=== PATIENT | female | born 2000 | race Two or more races ===

== ENCOUNTER 2024-10-22 19:17 | Emergency (ER) | payer MEDICAID, SELFPAY ==
[2024-10-22 20:19] VITALS: BP 114/78; PULSE 102; RESP 19; TEMP 37.5; O2SAT 97; BMI 29.9
--- NOTE | 2024-10-22 20:50 | PD.EDURI ---
Upper Respiratory Inf. RME/HPI General Chief Complaint: Dental/Oral/Throat Stated Complaint: THROAT PAIN, COUGH, SOB Time Seen by Provider: 10/22/24 20:32 Arrival date/time: 10/22/24 19:17 24-year-old female presents to the ED with complaint of runny nose, nasal congestion, sore throat, headache, dry cough, and upper back pain. Denies fever or chills, nausea vomiting, diarrhea or abdominal pain. Mode of arrival: ambulatory Limitations: no limitations Related Data Home Medications ?Medication ?Instructions ?Recorded ?Confirmed aspirin 81 mg tablet,delayed 81 mg PO QDAY 08/19/23 08/19/23 release insulin glargine 100 unit/mL (3 10 unit subcut BID 08/19/23 08/19/23 mL) subcutaneous pen (Lantus Solostar U-100 Insulin) Previous Rx's ?Medication ?Instructions ?Recorded amoxicillin 875 mg tablet 875 mg PO BID #20 tabs 10/22/24 ibuprofen 600 mg tablet 600 mg PO Q8H PRN fever or pain 10/22/24 #20 tabs promethazine-DM 6.25 mg-15 mg/5 mL 10 ml PO .Every 8 hours PRN cough 10/22/24 oral syrup #118 mL Allergies Allergy/AdvReac Type Severity Reaction Status Date / Time No Known Allergies Allergy Verified 08/19/23 10:45 ED Exam General Limitations: Present no limitations General appearance: Present alert and in no apparent distress Head Head exam: Present atraumatic and normal inspection Eye Eye exam: Present normal appearance; Absent scleral icterus or conjunctival injection ENT ENT exam: Present TM's normal bilaterally Expanded ENT Exam External ear exam: Present normal external inspection Nose exam: Present sinus tenderness and other (nares with edema, erythema) Mouth exam: Present normal external inspection Throat exam: Present tonsillar erythema; Absent tonsillar exudate Neck Neck exam: Present normal inspection; Absent tenderness or lymphadenopathy Chest Chest inspection: Present normal inspection Respiratory Respiratory exam: Present normal lung sounds bilaterally; Absent respiratory distress or wheezes Cardiovascular Cardiovascular exam: Present regular rate, normal rhythm and normal heart sounds; Absent systolic murmur Abdominal Exam Abdominal exam: Present soft; Absent distention or tenderness Extremities Exam Extremities exam: Present normal inspection Back Exam Back exam: Present full ROM Neurological Exam Neurological exam: Present alert and oriented X3 Psychiatric Psychiatric exam: Present normal affect and normal mood Skin Skin exam: Present warm, dry, intact and normal color Course Course Course Narrative: 24-year-old female presents to the ED with complaint of runny nose, nasal congestion, sore throat, headache, dry cough, and upper back pain. Denies fever or chills, nausea vomiting, diarrhea or abdominal pain. Exam reveals tender frontal sinuses, erythema, edema to nares bilat, mild erythema to posterior pharynx. No lymphadenopathy. Lungs are clear. CV Regular rate and rhythm w/o murmurs. Abdomen is soft, non-tender. Quality Measures none Orders Category Date Time Status Bedside Influenza A&B Antigen Test NOW Care 10/22/24 19:19 Completed Vital Signs Vital signs: Vital Signs Temperature 99.5 F 10/22/24 20:19 Pulse Rate 102 H 10/22/24 20:19 Respiratory Rate 19 10/22/24 20:19 Blood Pressure 114/78 10/22/24 20:19 Pulse Oximetry (%) 97 10/22/24 20:19 Oxygen Delivery Method Room Air 10/22/24 20:19 Upper Respiratory Infection MDM Narrative MDM Narrative:: 24-year-old female presents to the ED with complaint of runny nose, nasal congestion, sore throat, headache, dry cough, and upper back pain. Denies fever or chills, nausea vomiting, diarrhea or abdominal pain. Exam reveals tender frontal sinuses, erythema, edema to nares bilat, mild erythema to posterior pharynx. No lymphadenopathy. Lungs are clear. CV Regular rate and rhythm w/o murmurs. Abdomen is soft, non-tender. Patient data External records reviewed:: None Clinical information provided by:: patient Social determinants that could affect healthcare access:: none Patient has the following chronic illnesses:: DM How is presenting disease/condition affected by chronic disease/condition?: uneffected by Evaluation data The following diagnostics were reviewed and interpreted by me:: other (specify) (none) Lab and/or radiology exams considered but not ordered:: None Interpretation Summary: N/A Medications / Prescriptions Medications or Prescriptions considered but not ordered:: None Medication administrations:: N/A Consultations Consultation(s) initiated? (list below): No Diagnosis Upper Respiratory Differential Diagnosis: upper respiratory infection, otitis media, sinusitis, viral infection, bronchitis and pharyngitis Most likely diagnosis given after review of the tests above:: Acute Sinusitis and Bronchitis Admission Indicated Admission indicated?: not indicated Explain why admission is indicated or not indicated:: Stable for discharge Admission Request Was there a request for admission?: No Disposition Plan Disposition Plan: Discharge Discharge Attestation Discharge Attestation: The patient and all family members were given an opportunity to ask questions and understood the discharge instructions. Discharge instructions specifically effects, indications for sooner follow up or return to the emergency department, and the expected course of current diagnosis. Patient condition: Stable Discharge Plan Plan Patient Disposition: HOME (Self Care) Disposition Comment: Stable Prescriptions/Referrals Prescriptions/Med Rec: New amoxicillin 875 mg tablet 875 mg PO BID Qty: 20 0RF promethazine-DM 6.25-15 mg/5 mL syrup 10 ml PO .Every 8 hours PRN (Reason: cough) Qty: 118 0RF ibuprofen 600 mg tablet 600 mg PO Q8H PRN (Reason: fever or pain) Qty: 20 0RF No Action aspirin 81 mg tablet,delayed release (DR/EC) 81 mg PO QDAY insulin glargine [Lantus Solostar U-100 Insulin] 100 unit/mL (3 mL) insulin pen 10 unit SUBCUT BID Problem List Clinical Impression: Pharyngitis, Sinusitis Patient/Caregiver Discharge Instructions Education Materials: Self-Care for Sore Throats, ED Sinusitis (Antibiotic Treatment) Additional Instructions: Follow-up with your primary care physician in 24 to 48 hours. Return to the ED for any new or worsening symptoms. Print Language: Barbadian Stand Alone Forms: Shanika Award Info., Patient Portal Info Letter AMALIA/MADDIE Supervising Physician AMALIA/MADDIE Supervising Physician: Dr Bell
== END 2024-10-22 22:25 | disposition home or self-care (01) ==
LOC: SERX 21:41
PROVIDERS: Emergency Provider Emergency Medicine; PCP Obstetrics & Gynecology
DX: J02.9 Acute pharyngitis, unspecified (principal); J01.90 Acute sinusitis, unspecified
CPT/HCPCS: 99283

== ENCOUNTER 2025-03-08 16:48 | Emergency (ER) | payer MEDICAID, SELFPAY ==
[2025-03-08 16:50] VITALS: BMI 31.8
[2025-03-08 17:27] VITALS: BP 112/77; PULSE 86; RESP 16; TEMP 37.4; O2SAT 97
--- NOTE | 2025-03-08 17:55 | PD.EDRME ---
Rapid Medical Screening Exam E Arrival date/time: 03/08/25 16:48 This is a 25-year-old female that comes into the emergency room with complaints of abdominal pain more so on the right lower side that radiates to her flank into her back. Patient states she recently was seen by her primary doctor and was told that all her labs look normal. Patient also states that she sometimes has blood when she wipes when she has bowel movements. Patient states is not all the time. Patient just reports streaks of blood. Patient reports history of diabetes. I have greeted and performed a focused initial assessment of this patient. Initial appropriate labs ordered at this time. A comprehensive ED assessment and evaluation of the patient and analysis of all test and completion of medical decision making process will be conducted by additional ED provider. Chief Complaint: Abdominal Pain Time Seen by Provider: 03/08/25 17:24 Vital signs: Vital Signs Temperature 99.3 F 03/08/25 17:27 Pulse Rate 86 03/08/25 17:27 Respiratory Rate 16 03/08/25 17:27 Blood Pressure 112/77 03/08/25 17:27 Pulse Oximetry (%) 97 03/08/25 17:27 Oxygen Delivery Method Room Air 03/08/25 17:27
[2025-03-08 18:02] LABS: Collection Type, Urine Voided
[2025-03-08 18:20] LABS: Basophils # (Auto) 0.1 Thou/mm3 (0.0-0.2); Basophils % (Auto) 1 % (0-2.5); Eosinophils # (Auto) 0.1 Thou/mm3 (0.0-0.5); Eosinophils % (Auto) 1 % (0-10); Hematocrit 45.9 % (36.0-46.0); Hemoglobin 15.1 g/dL (12.0-16.0); Immature Granulocytes Auto 0.03 Thou/mm3 (0.00-0.00); Lymphocytes # (Auto) 2.7 Thou/mm3 (1.0-4.8); Lymphocytes % (Auto) 22 % (10-50); Mean Corpuscular HGB Conc 32.9 g/dl (31.0-37.0); Mean Corpuscular Hemoglobin 27.3 pg (25.0-35.0); Mean Corpuscular Volume 83 fL (80-100); Monocytes # (Auto) 0.6 Thou/mm3 (0.0-0.8); Monocytes % (Auto) 5 % (0-12); Neutrophils # (Auto) 8.9 Thou/mm3 (1.8-7.7); Neutrophils % (Auto) 72 % (37-80); Nucleated Red Blood Cell # 0.00 Thou/mm3 (0.00-0.00); Nucleated Red Blood Cell % 0 /100 WBC (0); Platelet Count 358 Thou/mm3 (140-440); RDW Standard Deviation 38.7 fL (36.4-46.3); Red Blood Count 5.54 Miln/mm3 (4.00-5.20); White Blood Count 12.4 Thou/mm3 (3.6-11.0)
[2025-03-08 18:34] LABS: Alanine Aminotransferase 42 U/L (10-49); Albumin, Serum 4.9 gm/dL (3.5-5.0); Albumin/Globulin Ratio 1.6 (1.2-2.2); Alkaline Phosphatase 175 U/L (46-116); Anion Gap 12 (7-16); Aspartate Amino Transferase 26 U/L (0-34); BUN/Creatinine Ratio 11 Ratio (12-20); Bilirubin,Total 0.3 mg/dL (0.3-1.2); Blood Urea Nitrogen 8 mg/dL (9-23); Calcium 10.3 mg/dL (8.3-10.6); Calcium (Corrected) 10.3 mg/dL (8.5-10.1); Carbon Dioxide 25.4 mMol/L (20.0-31.0); Chloride 104 mMol/L (98-107); Creatinine (Component) 0.7 mg/dL (0.6-1.3); Estimated Creatinine Clearance 122.2 mL/min (>60); Globulin 3.1 gm/dL (2.3-3.5); Glucose 111 mg/dL (74-106); Lipase 31 U/L (12-53); Osmolality,Calculated 280 (275-295); Potassium 3.8 mMol/L (3.4-5.1); Sodium 141 mMol/L (136-145); Total Protein 8.0 gm/dL (5.7-8.2); eGFR > 60 See Note
[2025-03-08 18:35] LABS: Bilirubin,Urine Negative (Negative); Blood,Urine Negative (Negative); Clarity,Urine Clear (Clear/Hazy); Color,Urine Lt-Yellow (Lt Yel-Yel); Culture Indicated,Urine Not Indicated; Glucose, Urine 4+ (Negative); Ketones,Urine Negative (Negative); Leukocyte Esterase,Urine Positive (Negative); Nitrite,Urine Negative (Negative); PH,Urine 6.5 (5.0-7.0); Protein,Urine Negative (Neg - Trace); RBC,Urine 2 /hpf (0-3); Specific Gravity,Urine 1.040 (1.001-1.035); Squamous Epithelial Cell,Urine 10 /hpf (0-5); Urobilinogen,Urine Negative mg/dL (0.0-1.0); WBC,Urine 5 /hpf (0-5)
[2025-03-08 18:51] LABS: HCG Qualitative,Urine Negative
--- NOTE | 2025-03-08 19:13 | PD.EDABDPN ---
ED Abdominal Pain RME/HPI General Chief Complaint: Abdominal Pain Stated complaint: RLQ PAIN Time seen by provider: 03/08/25 17:24 Arrival date/time: 03/08/25 16:48 RME / HPI RME / HPI narrative: 25-year-old female patient with significant history of diabetes mellitus, came in for evaluation regarding right lower quadrant pain. Onset of symptoms since 3 days prior to ER visit last right lower quadrant pain radiating to the flank associated with nausea. Patient was seen by PCP and was told that all her lab looks normal. Patient state that she sometimes had blood when she wipes when she has bowel movements. Denies any vomiting denies any diarrhea or constipation denies any other complaints. Denies any dysuria. Related Data Home Medications ?Medication ?Instructions ?Recorded ?Confirmed aspirin 81 mg tablet,delayed 81 mg PO QDAY 08/19/23 08/19/23 release insulin glargine 100 unit/mL (3 10 unit subcut BID 08/19/23 08/19/23 mL) subcutaneous pen (Lantus Solostar U-100 Insulin) Previous Rx's ?Medication ?Instructions ?Recorded amoxicillin 875 mg tablet 875 mg PO BID #20 tabs 10/22/24 ibuprofen 600 mg tablet 600 mg PO Q8H PRN fever or pain 10/22/24 #20 tabs promethazine-DM 6.25 mg-15 mg/5 mL 10 ml PO .Every 8 hours PRN cough 10/22/24 oral syrup #118 mL ibuprofen 800 mg tablet 800 mg PO Q8H PRN pain #30 tabs 03/08/25 Allergies Allergy/AdvReac Type Severity Reaction Status Date / Time No Known Allergies Allergy Verified 08/19/23 10:45 Review of Systems Review of Systems Narrative Review of Systems: Review of system reviewed and within normal limits except mentioned in HPI ED Exam Narrative Physical exam: VITAL SIGNS: Reviewed. GENERAL APPEARANCE: Alert and interactive, follows commands, no acute distress, HEAD AND FACE: Non-traumatic. ENT: PERRL, pink conjunctivitis, eyelid no trauma, Mucous membrane moist. NECK: Supple, nontender, no nuchal rigidity. CHEST: No tenderness, no crepitus, no paradoxical movement, no retractions. LUNGS: Clear, well ventilated, symmetric, no rales, no wheezing, no ronchi, no stridor, good breath sounds bilaterally. HEART: Regular rate, regular rhythm, no murmur, no gallops. ABDOMEN: Soft, positive bowel sounds, nondistended, no guarding, right lower quadrant tenderness on deep palpation, no rebound, no masses, RECTAL: Deferred. GENITAL: Deferred. NEUROLOGICAL: Gross motor function intact sensory function intact, Appropriate for age. MUSCULOSKELETAL: low back nontender, full range of motion. EXTREMITIES: Nontender, full range of motion. SKIN: Color pink, dry, no rash, no lacerations, no abrasions, no contusions. LYMPHATICS: Deferred. Course Quality Measures none Orders Category Date Time Status CT Screening NOW Care 03/08/25 19:22 Active IV [Insert IV] STAT Care 03/08/25 19:[address] abdomen pelvis w con Stat Exams 03/08/25 19:22 Completed CBC Stat Lab 03/08/25 18:07 Completed Comprehensive Metabolic Panel Stat Lab 03/08/25 18:07 Completed HCG Qualitative,Urine Stat Lab 03/08/25 17:55 Completed Lipase Stat Lab 03/08/25 18:07 Completed Urinalysis, C/S if Indicated Stat Lab 03/08/25 17:55 Completed Vital Signs Vital signs: Vital Signs Temperature 99.3 F 03/08/25 17:27 Pulse Rate 86 03/08/25 17:27 Respiratory Rate 16 03/08/25 17:27 Blood Pressure 112/77 03/08/25 17:27 Pulse Oximetry (%) 97 03/08/25 17:27 Oxygen Delivery Method Room Air 03/08/25 17:27 Abdominal Pain MDM MDM Narrative MDM Narrative:: 25-year-old female patient with significant history of diabetes mellitus, came in for evaluation regarding right lower quadrant pain. Onset of symptoms since 3 days prior to ER visit last right lower quadrant pain radiating to the flank associated with nausea. Patient was seen by PCP and was told that all her lab looks normal. Patient state that she sometimes had blood when she wipes when she has bowel movements. Denies any vomiting denies any diarrhea or constipation denies any other complaints. Denies any dysuria. CT scan of the abdomen and pelvis came back unremarkable. Laboratory workup significant slight leukocytosis no UTI otherwise unremarkable. Results discussed with the patient. Patient is not having any acute abdominal problem at this time. Patient appears nontoxic and hemodynamically stable .Decision to discharge the patient. The patient/family was given an opportunity to ask questions and understood their discharge instructions. Discharge instructions specifically included follow up provider and time frame, current and/or new medications and possible side effects, indications for sooner follow up or return to the emergency department, and the expected course of current diagnosis. Patient reports feeling better as well and giving evidence of significant clinical improvement, I believe patient is now a candidate for discharge. Patient data External records reviewed:: None Clinical information provided by:: patient Social determinants that could affect healthcare access:: none Patient has the following chronic illnesses:: Diabetes mellitus How is presenting disease/condition affected by chronic disease/condition?: uneffected by Evaluation data The following diagnostics were reviewed and interpreted by me:: lab results and radiology exam(s) Lab and/or radiology exams considered but not ordered:: None Interpretation Summary: See results MDM Medications / Prescriptions Medications or Prescriptions considered but not ordered:: None Medication administrations:: None Consultations Consultation(s) initiated? (list below): No Diagnosis Differential diagnosis abdominal pain: abdominal pain, acute appendicitis and constipation Most likely diagnosis given after review of the tests above:: Abdominal pain Admission Indicated Admission indicated?: not indicated Admission Request Was there a request for admission?: No Disposition Plan Disposition Plan: Discharge Discharge Attestation Discharge Attestation: The patient was given an opportunity to ask questions and understood the discharge instructions. Discharge instructions specifically effects, indications for sooner follow up or return to the emergency department, and the expected course of current diagnosis. Patient condition: Stable Discharge Plan Plan Patient Disposition: HOME (Self Care) Discharge Disposition comment: Stable Prescriptions/Referrals Prescriptions/Med Rec: New ibuprofen 800 mg tablet 800 mg PO Q8H PRN (Reason: pain) Qty: 30 0RF No Action aspirin 81 mg tablet,delayed release (DR/EC) 81 mg PO QDAY insulin glargine [Lantus Solostar U-100 Insulin] 100 unit/mL (3 mL) insulin pen 10 unit SUBCUT BID amoxicillin 875 mg tablet 875 mg PO BID Qty: 20 0RF promethazine-DM 6.25-15 mg/5 mL syrup 10 ml PO .Every 8 hours PRN (Reason: cough) Qty: 118 0RF ibuprofen 600 mg tablet 600 mg PO Q8H PRN (Reason: fever or pain) Qty: 20 0RF Referrals: Courtney Tong MD [Primary Care Provider] - In 1 week Problem List Clinical Impression: Abdominal pain Patient/Caregiver Discharge Instructions Discharge Activity: activity as tolerated Education Materials: Abdominal Pain Additional Instructions: Thank you for the opportunity for serving you today. You are stable for discharged . You are advised to: Follow-up with your PCP in 1 to 2 days Return to ED for worsening of symptoms Increase oral fluids Take medication as prescribed Print Language: Surinamese Stand Alone Forms: Shanika Award Info., Patient Portal Info Letter PA/[employer]CTOR[employer] Supervising Physician AMALIA/MADDIE Supervising Physician: MD Gómez
[2025-03-08 19:15] VITALS: BP 121/82; PULSE 82; RESP 18; O2SAT 98
--- NOTE | 2025-03-08 19:22 | XR_ITS ---
Examination: CT abdomen with intravenous contrast CT pelvis with intravenous contrast 2-D coronal reconstructions 2-D sagittal reconstructions Date and time of exam:March 08, 2025, 2048 hrs. Indications: Right lower abdominal pain onset today.. CTDI: vol (mGy) 9.35 DLP: (mGycm) 565 Technique: Multiple axial sections of the abdomen and pelvis have been obtained. 64 slice high-resolution scanner used. 3 mm axial sections have been obtained, post intravenous injection 60 cc [id number]. 2-D sagittal, coronal reconstructions obtained. Low dose protocols were performed. One or more of the following dose reduction techniques were used; automated exposure control, adjustment of the mA and/or KV according to patient size, use of iterative reconstruction technique. Findings: No focal liver or splenic lesions. Gallbladder is not visualized. No extra hepatic biliary tract dilatation. Normal pancreas normal adrenal glands. No renal or ureteral calculi, no hydronephrosis Normal appendix No bowel obstruction No diverticulitis. No pelvic mass. Urinary bladder intact. The osseous structures are intact Impression: Normal appendix No renal or ureteral calculi, no hydronephrosis. No bowel obstruction diverticulitis or free air.
--- NOTE | 2025-03-08 20:17 | PC.NURSE ---
ASSUMED CARE OF PATIENT, PT C/O RLQ PAIN 11/16 THAT STARTED THIS AFTERNOON, PT LAST ATE AT 0900. PT WAITING FOR CT AND WILL CONTINUE WITH PLAN OF CARE
[2025-03-08 21:52] VITALS: BP 118/89; PULSE 82; RESP 16; O2SAT 98
== END 2025-03-08 21:53 | disposition home or self-care (01) ==
PROVIDERS: Nurse Practitioner Family; Emergency Provider Family Medicine; PCP Obstetrics & Gynecology
DX: R10.31 Right lower quadrant pain (principal)
CPT/HCPCS: 36415; 74177; 80053; 81001; 81025; 83690; 85025; 99283; A4649; Q9967